=== PATIENT | male | born 1975 | race Hispanic/Latino ===

== ENCOUNTER 2019-12-03 19:40 | Emergency (ER) | payer BC, OTHER ==
[~2019-12-03] VITALS: Ht 177.8 cm; Wt 154.2 kg
[2019-12-03 21:53] VITALS: BP 172/89
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
== END 2019-12-03 22:41 | disposition home or self-care (01) ==
LOC: FSED 19:51
DX: M25.562 Pain in left knee (principal); S83.92XA Sprain of unspecified site of left knee, initial encounter; V64.5XXA Driver of heavy transport vehicle injured in collision with heavy transport vehicle or bus in traffic accident, initial encounter; Y92.488 Other paved roadways as the place of occurrence of the external cause; I10 Essential (primary) hypertension; E11.9 Type 2 diabetes mellitus without complications
CPT/HCPCS: 99283